=== PATIENT | male | born 1935 | race Caucasian/White ===

== ENCOUNTER → 2016-07-14 | Outpatient (CLI) | payer MEDICARE ==
--- NOTE | 2016-07-21 09:20 | RSPPFT ---
DATE OF PROCEDURE: 07/14/16 COMMENTS: VOLUMES DYNAMIC: FVC and FEV1 moderately reduced. STATIC: Unable to perform. FLOWS: FEV1% and FEF 25-75 super normal. DIFFUSION: Normal. FLOW VOLUME LOOP: Restrictive configuration. IMPRESSION: Probable mild to moderate restrictive ventilatory defect. The patient could not perform full lung volumes. There is no improvement in FEV1 post-bronchodilator. Diffusion capacity is normal. Negative inspiratory force and positive expiratory force are both very low consistent with the clinical diagnosis of neuromuscular disease.
== END ==
LOC: HRSP 12:38
PROVIDERS: ATTEND Internal Medicine
DX: R06.00 Dyspnea, unspecified (principal)
CPT/HCPCS: 94060; 94150; 94729